=== PATIENT | female | born 1995 | race Caucasian/White ===

== ENCOUNTER 2020-01-29 13:53 | Emergency (ER) | payer OTHER ==
[~2020-01-29] VITALS: Ht 157.5 cm; Wt 41.7 kg
[2020-01-29] MEDS ORDERED: VISTARIL 25 MG25 M1 PO (16:51)
[2020-01-29 17:01] VITALS: BP 111/79
== END 2020-01-29 17:04 | disposition home or self-care (01) ==
LOC: M.ERS 13:53
DX: F41.9 Anxiety disorder, unspecified (principal); Z88.2 Allergy status to sulfonamides

== ENCOUNTER 2020-02-02 06:47 | Emergency (ER) | payer OTHER ==
[~2020-02-02] VITALS: Ht 157.5 cm; Wt 41.7 kg
[~2020-02-02 06:47] MED LIST: VISTARIL 25 MG25 M1 PO
[2020-02-02] MEDS ORDERED: LEXAPRO5 MG PO (07:15)
[2020-02-02] MEDS ORDERED: BUSPIRONE HCL10 MG PO (07:15)
[2020-02-02 08:04] LABS: ABSOLUTE LYMPHOCYTES 1.5 thou/uL (0.8-5.3); ABSOLUTE MONOCYTES 0.3 thou/uL (0.0-1.2); ABSOLUTE NEUTROPHILS 3.5 thou/uL (1.6-8.1); BASOPHILS 0.6 %; EOSINOPHILS 0.6 %; HEMATOCRIT 37.9 % (37.0-47.0); HEMOGLOBIN 13.1 gm/dL (12.0-15.0); LYMPHOCYTES 27.8 %; MCH 31.3 pg (26.0-34.0); MCHC 34.6 g/dL (28.0-37.0); MCV 90.4 fL (80.0-100.0); MONOCYTES 5.9 %; MPV 8.1 fl. (7.2-11.1); NUCLEATED RBCS 0 /100WBC; PLATELET COUNT* 186 thou/uL (150-400); POLYS 65.1 %; RBC 4.19 mil/uL (4.20-5.00); WBC 5.4 thou/uL (4.0-11.0)
[2020-02-02 08:07] LABS: CALCIUM 8.7 mg/dL (8.5-10.1); CREATININE 0.7 mg/dL (0.6-1.3); POTASSIUM 3.5 mmol/L (3.5-5.1)
[2020-02-02 08:11] LABS: ALBUMIN 4.1 g/dL (3.4-5.0); TOTAL BILIRUBIN 0.7 mg/dL (<0.1-1.0); TOTAL PROTEIN 7.2 g/dL (6.4-8.2)
[2020-02-02 09:15] VITALS: BP 100/81
--- NOTE | 2020-02-02 11:22 | EKG ---
[place] [address] ELECTROCARDIOGRAM REPORT Name: JADEN ZAVALA Room: [facility]#: [id number] Admission: 02/02/20 Attend Phys: Discharge: 02/02/20 Date of : [birth year] Date of Service: 02/02/20 0745 Report #: [id number] THIS REPORT FOR: //name// [facility] ED Test Date: 2020-02-02 Test Time: 07:45:05 Pat Name: JADEN ZAVALA Department: Room: Gender: F [employer]: GILDARDO : 1995 Requested By: Ned Paredes Order Number: [id number] MD: Damion Connelly Measurements Intervals [place] Rate: 65 P: 74 OK: 131 QRS: 77 QRSD: 89 T: 62 QT: 414 QTc: 431 Interpretive Statements Sinus rhythm artifact noted Baseline wander in lead(s) II,III,aVF,V4,V5 No previous ECG available for comparison Electronically Signed On 02-02-2020 11:22:11 CDT by Damion Connelly [email or web address] <ELECTRONICALLY SIGNED> By: Damion Connelly MD, FAC 02/02/20 1122 0745 0745 Damion Connelly MD, [facility] /EPI
== END 2020-02-02 09:15 | disposition home or self-care (01) ==
LOC: M.ERS 06:47
PROVIDERS: Emergency Medicine Emergency Medical Services
DX: F41.9 Anxiety disorder, unspecified (principal); R11.0 Nausea; T43.225A Adverse effect of selective serotonin reuptake inhibitors, initial encounter; T43.595A Adverse effect of other antipsychotics and neuroleptics, initial encounter; Z79.899 Other long term (current) drug therapy; Z88.2 Allergy status to sulfonamides; Y92.89 Other specified places as the place of occurrence of the external cause

== ENCOUNTER 2020-02-24 14:44 | Emergency (ER) | payer OTHER ==
[~2020-02-24] VITALS: Ht 157.5 cm; Wt 41.7 kg
[~2020-02-24 14:44] MED LIST changes: +BUSPIRONE HCL10 MG PO; +LEXAPRO5 MG PO
[2020-02-24] MEDS ORDERED: AMOXICILLIN 50500 MG PO (15:53)
[2020-02-24 15:58] VITALS: BP 108/70
== END 2020-02-24 15:59 | disposition home or self-care (01) ==
LOC: M.ERS 14:44
DX: J02.0 Streptococcal pharyngitis (principal); Z88.1 Allergy status to other antibiotic agents; Z88.2 Allergy status to sulfonamides

== ENCOUNTER 2020-03-15 04:02 | Emergency (ER) | payer OTHER ==
[~2020-03-15] VITALS: Ht 157.5 cm; Wt 41.7 kg
[~2020-03-15 04:02] MED LIST changes: +AMOXICILLIN 50500 MG PO
[2020-03-15 04:47] LABS: URINE BILIRUBIN NEGATIVE (Negative); URINE BLOOD NEGATIVE (Negative); URINE CLARITY CLEAR; URINE COLOR STRAW; URINE GLUCOSE-RANDOM NEGATIVE (Negative); URINE KETONES NEGATIVE (Negative); URINE LEUKOCYTES-REFLEX 1+ (Negative); URINE NITRITE-REFLEX NEGATIVE (Negative); URINE PROTEIN NEGATIVE (Negative); URINE SPECIFIC GRAVITY <= 1.005 (1.005-1.030); URINE UROBILINOGEN 0.2 E.U./dl (0.2-1.0)
[2020-03-15] MEDS ORDERED: ZOFRAN ODT4 MG PO (05:28)
[2020-03-15] MEDS ORDERED: TRAMADOL 50 MG50 MG PO (05:28)
[2020-03-15] MEDS ORDERED: MACROBID 100 M100 M2 PO (05:28)
[2020-03-15 05:31] LABS: CASTS None Seen /LPF (None Seen); SQUAMOUS >10 Many /LPF (0-3); URINE RBC None Seen /HPF (0-2); URINE WBC-REFLEX 0-5 Rare /HPF (0-5)
[2020-03-15 05:32] LABS: BACTERIA-REFLEX 1-9 Few /HPF (None Seen); CRYSTALS None Seen /LPF (None Seen)
[2020-03-15] MEDS ORDERED: PYRIDIUM200 MG PO (05:40)
[2020-03-15 05:59] VITALS: BP 102/62
== END 2020-03-15 06:00 | disposition home or self-care (01) ==
LOC: M.ERS 04:02
PROVIDERS: Emergency Medicine
DX: N39.0 Urinary tract infection, site not specified (principal); Z88.2 Allergy status to sulfonamides; Z88.1 Allergy status to other antibiotic agents

== ENCOUNTER 2020-03-20 02:22 | Emergency (ER) | payer OTHER ==
[~2020-03-20] VITALS: Ht 157.5 cm; Wt 41.7 kg
[~2020-03-20 02:22] MED LIST changes: +MACROBID 100 M100 M2 PO; +PYRIDIUM200 MG PO; +TRAMADOL 50 MG50 MG PO; +ZOFRAN ODT4 MG PO
[2020-03-20 03:00] LABS: URINE BILIRUBIN NEGATIVE (Negative); URINE BLOOD NEGATIVE (Negative); URINE CLARITY CLEAR; URINE COLOR YELLOW; URINE GLUCOSE-RANDOM NEGATIVE (Negative); URINE KETONES NEGATIVE (Negative); URINE LEUKOCYTES-REFLEX 1+ (Negative); URINE NITRITE-REFLEX NEGATIVE (Negative); URINE PROTEIN NEGATIVE (Negative); URINE SPECIFIC GRAVITY 1.015 (1.005-1.030); URINE UROBILINOGEN 0.2 E.U./dl (0.2-1.0)
[2020-03-20 03:07] LABS: AMP/METHAMP Negative (Negative); BARBITURATES Negative (Negative); BENZODIAZEPINES Negative (Negative); COCAINE Negative (Negative); METHADONE Negative (Negative); OPIATES Negative (Negative); PCP Negative (Negative); THC Negative (Negative)
[2020-03-20 04:03] LABS: CASTS None Seen /LPF (None Seen); SQUAMOUS >10 Many /LPF (0-3); URINE RBC None Seen /HPF (0-2); URINE WBC-REFLEX 6-15 Few /HPF (0-5)
[2020-03-20 04:04] LABS: CRYSTALS None Seen /LPF (None Seen)
[2020-03-20 04:32] LABS: ABSOLUTE BASOPHILS 0.1 thou/uL (0.0-0.2); ABSOLUTE LYMPHOCYTES 2.2 thou/uL (0.8-5.3); ABSOLUTE MONOCYTES 0.5 thou/uL (0.0-1.2); ABSOLUTE NEUTROPHILS 3.8 thou/uL (1.6-8.1); BASOPHILS 0.8 %; EOSINOPHILS 0.5 %; HEMATOCRIT 35.7 % (37.0-47.0); HEMOGLOBIN 12.4 gm/dL (12.0-15.0); LYMPHOCYTES 33.6 %; MCH 31.4 pg (26.0-34.0); MCHC 34.7 g/dL (28.0-37.0); MCV 90.4 fL (80.0-100.0); MONOCYTES 7.5 %; MPV 8.4 fl. (7.2-11.1); NUCLEATED RBCS 0 /100WBC; PLATELET COUNT* 178 thou/uL (150-400); POLYS 57.6 %; RBC 3.95 mil/uL (4.20-5.00); RDW-CV 12.6 % (10.5-14.5); WBC 6.6 thou/uL (4.0-11.0)
[2020-03-20 04:44] LABS: CALCIUM 8.7 mg/dL (8.5-10.1); CREATININE 0.7 mg/dL (0.6-1.3); POTASSIUM 3.3 mmol/L (3.5-5.1)
[2020-03-20] MEDS ORDERED: CIPROFLOXACIN500 M1 PO (07:04)
[2020-03-20 07:32] VITALS: BP 102/68
== END 2020-03-20 07:33 | disposition home or self-care (01) ==
LOC: M.ERS 02:22
PROVIDERS: Emergency Medicine
DX: N39.0 Urinary tract infection, site not specified (principal); Z88.2 Allergy status to sulfonamides